=== PATIENT | female | born 1990 | race Caucasian/White ===

== ENCOUNTER 2017-03-02 17:19 | Emergency (ER) | payer OTHER ==
[2017-03-02 18:20] LABS: HEMOGLOBIN 13.4 gm/dl (12.3-15.3); RED BLOOD COUNT 4.54 M/UL (4.00-5.10); WHITE BLOOD COUNT 5.3 K/UL (4.5-11.0)
[2017-03-02 18:38] LABS: BUN/CREATININE RATIO 13 (0-10)
== END 2017-03-02 19:55 | disposition home or self-care (01) ==
LOC: ER1 17:19
PROVIDERS: Physician Assistant Medical
DX: N39.0 Urinary tract infection, site not specified (principal); R51 Headache; R11.0 Nausea
CPT/HCPCS: 36415; 70450; 80053; 81001; 82150; 83690; 84703; 85025; 96374; 96375; 99284; J1885; J2765; J7030